=== PATIENT | male | born 1995 | race Hispanic/Latino ===

== ENCOUNTER 2018-04-22 10:16 | Emergency (ER) | payer OTHER, SELFPAY ==
[2018-04-22] MEDS ORDERED: ONDANSETRON 4 MG/2 ML VIAL ONE (11:33)
[2018-04-22] MEDS ORDERED: LIDOCAINE VISCOUS 2% SOLN 15 ML UDC ONE (11:33)
[2018-04-22] MEDS ORDERED: MAGNE/ALUM HYDROXD 30 ML UCUP ONE (11:33)
[2018-04-22] MEDS ORDERED: FAMOTIDINE 20 MG/2 ML VIAL IV ONE (11:34)
[2018-04-22 15:01] LABS: Albumin 5.2 g/dL (3.4-5.0); Bilirubin Direct 0.2 mg/dL (0-0.2); Bilirubin Total 0.7 mg/dL (0.2-1.0); Potassium 3.2 mmol/L (3.5-5.1); Protein, Total 8.8 g/dL (6.4-8.2)
[2018-04-22] MEDS ORDERED: POTASSIUM CL SA 10 MEQ TAB PO ONE (15:02)
--- NOTE | 2018-04-22 15:09 | ER ---
Nurse's Notes [facility] Name: Barbi Garay Age: 22 yrs Sex: Male : 1995 Arrival Date: 04/22/2018 Time: 10:17 Bed 20 Private MD: None, None Diagnosis: Gastritis, unspecified Presentation: 04/22 11:13 Presenting complaint: Patient states: Vomiting since Friday. Reports blood streaking in aj emesis. Patient is A+O x 3, ambulatory with skin pink, warm, and dry. Reports pain in epigastrium. Transition of care: patient was not received from another setting of care. Onset of symptoms was April 20, 2018. Risk Assessment: Do you want to hurt yourself or someone else? Patient reports no desire to harm self or others. Initial Sepsis Screen: Does the patient meet any 2 criteria? No. Patient's initial sepsis screen is negative. Does the patient have a suspected source of infection? No. Patient's initial sepsis screen is negative. Care prior to arrival: None. 11:13 Method Of Arrival: Ambulatory 11:13 Acuity: RONNY 3 aj Triage Assessment: 11:15 General: Appears in no apparent distress. comfortable, Behavior is calm, cooperative, aj appropriate for age. Pain: Complains of pain in epigastric area. Neuro: Level of Consciousness is awake, alert, obeys commands, Oriented to person, place, time, situation, Appropriate for age. Respiratory: Airway is patent Respiratory effort is even, unlabored, Respiratory pattern is regular, symmetrical. GI: Abdomen is flat, Reports upper abdominal pain, epigastric pain, nausea, vomiting. Derm: Skin is intact, is healthy with good turgor, Skin is pink, warm \T\ dry. normal. Historical: - Allergies: 11:15 No Known Allergies; aj - Home Meds: 11:15 None [Active]; aj - PMHx: 11:15 None; aj - PSHx: 11:15 None; aj - Immunization history:: Adult Immunizations unknown. - Social history:: Smoking status: Patient uses tobacco products, smokes one-half pack cigarettes per day, Patient uses alcohol, weekly. - Ebola Screening: : Patient negative for fever greater than or equal to 101.5 degrees Fahrenheit, and additional compatible Ebola Virus Disease symptoms Patient denies exposure to infectious person Patient denies travel to an Ebola-affected area in the 21 days before illness onset No symptoms or risks identified at this time. Screenin:13 Abuse screen: Denies threats or abuse. Denies injuries from another. Nutritional hj screening: No deficits noted. Tuberculosis screening: No symptoms or risk factors identified. Fall Risk None identified. Assessment: 11:15 General: Appears in no apparent distress. uncomfortable, Behavior is calm, cooperative, hj appropriate for age. Pain: Complains of pain in epigastric area. Neuro: Level of Consciousness is awake, alert, obeys commands, Oriented to person, place, time, situation, Appropriate for age. Cardiovascular: Reports None Heart tones S1 S2 present Capillary refill < 3 seconds Patient's skin is warm and dry. Respiratory: Airway is patent Respiratory effort is even, unlabored, Respiratory pattern is regular, symmetrical. GI: Reports upper abdominal pain. GI: Bowel sounds present X 4 quads. Abd is soft and non tender Abd is soft. : No signs and/or symptoms were reported regarding the genitourinary system. EENT: No signs and/or symptoms were reported regarding the EENT system. Derm: No signs and/or symptoms reported regarding the dermatologic system. Musculoskeletal: No signs and/or symptoms reported regarding the musculoskeletal system. 12:46 Reassessment: Patient and/or family updated on plan of care and expected duration. Pain hj level reassessed. Patient is alert, oriented x 3, equal unlabored respirations, skin warm/dry/pink. 13:43 Reassessment: Patient and/or family updated on plan of care and expected duration. Pain hj level reassessed. Patient is alert, oriented x 3, equal unlabored respirations, skin warm/dry/pink. awaiting results and POC;. 14:31 Reassessment: Patient and/or family updated on plan of care and expected duration. Pain hj level reassessed. Patient is alert, oriented x 3, equal unlabored respirations, skin warm/dry/pink. awaiting POC; Patient states feeling better. Patient states symptoms have improved. 15:04 Reassessment: for possible D/C; awaiting chest xray result;. hj Vital Signs: 11:15 BP 132 / 78; Pulse 81; Resp 16; Temp 97.6; Pulse Ox 99% on R/A; Weight 63.5 kg; Height aj 5 ft. 5 in. (165.10 cm); 12:18 BP 110 / 69; Pulse 70; Resp 18; Pulse Ox 97% on R/A; hj 12:47 BP 115 / 60; Pulse 84; Resp 18; Pulse Ox 100% on R/A; hj 13:43 BP 112 / 59; Pulse 61; Resp 18; Pulse Ox 100% on R/A; hj 14:31 BP 116 / 79; Pulse 65; Resp 18; Pulse Ox 100% on R/A; hj 11:15 Body Mass Index 23.30 (63.50 kg, 165.10 cm) aj ED Course: 10:17 Patient arrived in ED. iw 10:17 None, None is Private Physician. iw 11:13 Aurelio Carson PA is PHCP. jr8 11:13 Vijay Mondragon MD is Attending Physician. jr8 11:13 Patient has correct armband on for positive identification. Placed in gown. Bed in low hj position. Call light in reach. Side rails up X 1. 11:15 Triage completed. aj 11:15 Arm band placed on left wrist. Patient placed in an exam room, on a stretcher. aj 11:17 Rodrigo Amaro, RN is Primary Nurse. hj 11:30 Initial lab(s) drawn, by me, sent to lab. Inserted saline lock: 22 gauge in right hj antecubital area, using aseptic technique. Blood collected. 15:10 X-ray completed. Portable x-ray completed in exam room. Patient tolerated procedure ml well. 15:17 No provider procedures requiring assistance completed. IV discontinued, intact, hj bleeding controlled, No redness/swelling at site. Pressure dressing applied. Administered Medications: 11:17 Drug: Pepcid 20 mg Route: IVP; Site: right antecubital; hj 12:08 Follow up: Response: No adverse reaction hj 11:17 Drug: Zofran 4 mg Route: IVP; Site: right antecubital; hj 12:08 Follow up: Response: No adverse reaction hj 11:17 Drug: GI Cocktail without - (Maalox Suspension 30 ml, Lidocaine Liquid 2 % 15 hj ml) Route: PO; 12:08 Follow up: Response: No adverse reaction hj 14:55 Drug: Potassium Chloride 20 mEq Route: PO; hj 14:58 Follow up: Response: No adverse reaction hj Outcome: 15:07 Discharge ordered by MD. douglass 15:17 Discharged to home ambulatory. vy 15:17 Condition: stable 15:17 Discharge instructions given to patient, Instructed on discharge instructions, follow up and referral plans. medication usage, Demonstrated understanding of instructions, follow-up care, medications, Prescriptions given X 2. 15:20 Patient left the ED. vy Signatures: Hien Marrufo RN RN aj Williams, Irene, RN RN iw Lopez, Melissa ml Roszak, Josh, PA PA jr8 Joaquin, Henry, RN RN hj
--- NOTE | 2018-04-22 15:10 | EDPHYS ---
Physician Documentation [facility] Name: Barbi Garay Age: 22 yrs Sex: Male : 1995 Arrival Date: 04/22/2018 Time: 10:17 Bed 20 Private MD: None, None ED Physician Vijay Mondragon HPI: 04/22 11:22 This 22 yrs old Male presents to ER via Ambulatory with complaints of Vomiting.jr8 11:22 The patient presents to the emergency department with nausea, vomiting, abdominal pain, jr8 of the epigastric area, described as dull. Onset: The symptoms/episode began/occurred acutely, 2 day(s) ago. Possible causes: unknown. The symptoms are aggravated by nothing. The symptoms are alleviated by nothing. Associated signs and symptoms: The patient has no apparent associated signs or symptoms. Severity of symptoms: At their worst the symptoms were moderate in the emergency department the symptoms are unchanged. The patient has not experienced similar symptoms in the past. The patient has not recently seen a physician. Historical: - Allergies: 11:15 No Known Allergies; aj - Home Meds: 11:15 None [Active]; aj - PMHx: 11:15 None; aj - PSHx: 11:15 None; aj - Immunization history:: Adult Immunizations unknown. - Social history:: Smoking status: Patient uses tobacco products, smokes one-half pack cigarettes per day, Patient uses alcohol, weekly. - Ebola Screening: : Patient negative for fever greater than or equal to 101.5 degrees Fahrenheit, and additional compatible Ebola Virus Disease symptoms Patient denies exposure to infectious person Patient denies travel to an Ebola-affected area in the 21 days before illness onset No symptoms or risks identified at this time. ROS: 11:22 Eyes: Negative for injury, pain, redness, and discharge, ENT: Negative for injury, jr8 pain, and discharge, Neck: Negative for injury, pain, and swelling, Cardiovascular: Negative for chest pain, palpitations, and edema, Respiratory: Negative for shortness of breath, cough, wheezing, and pleuritic chest pain, Back: Negative for injury and pain, MS/Extremity: Negative for injury and deformity, Skin: Negative for injury, rash, and discoloration, Neuro: Negative for headache, weakness, numbness, tingling, and seizure. 11:22 Abdomen/GI: Positive for abdominal pain, nausea and vomiting, hematemesis, Negative for diarrhea, constipation, abdominal cramps, abdominal distension, anorexia, dysphagia, black/tarry stool, rectal pain, rectal bleeding, bowel incontinence, flatulence. Exam: 11:22 Eyes: Pupils equal round and reactive to light, extra-ocular motions intact. Lids and jr8 lashes normal. Conjunctiva and sclera are non-icteric and not injected. Cornea within normal limits. Periorbital areas with no swelling, redness, or edema. ENT: Nares patent. No nasal discharge, no septal abnormalities noted. Tympanic membranes are normal and external auditory canals are clear. Oropharynx with no redness, swelling, or masses, exudates, or evidence of obstruction, uvula midline. Mucous membranes moist. Neck: Trachea midline, no thyromegaly or masses palpated, and no cervical lymphadenopathy. Supple, full range of motion without nuchal rigidity, or vertebral point tenderness. No Meningismus. Cardiovascular: Regular rate and rhythm with a normal S1 and S2. No gallops, murmurs, or rubs. Normal PMI, no JVD. No pulse deficits. Respiratory: Lungs have equal breath sounds bilaterally, clear to auscultation and percussion. No rales, rhonchi or wheezes noted. No increased work of breathing, no retractions or nasal flaring. Back: No spinal tenderness. No costovertebral tenderness. Full range of motion. Skin: Warm, dry with normal turgor. Normal color with no rashes, no lesions, and no evidence of cellulitis. MS/ Extremity: Pulses equal, no cyanosis. Neurovascular intact. Full, normal range of motion. Neuro: Awake and alert, GCS 15, oriented to person, place, time, and situation. Cranial nerves II-XII grossly intact. Motor strength 5/5 in all extremities. Sensory grossly intact. Cerebellar exam normal. Normal gait. 11:22 Abdomen/GI: Inspection: abdomen appears normal, Bowel sounds: active, all quadrants, Palpation: soft, in all quadrants, mild abdominal tenderness, in the epigastric area, mass, is not appreciated, rebound tenderness, is not appreciated, voluntary guarding, is elicited in all quadrants, involuntary guarding, is elicited in all quadrants, no appreciated organomegaly, Indicators: McBurney's point is not tender, Packer's sign is negative, Rovsing's sign is negative, Liver: no appreciated palpable abnormalities, tenderness, is not appreciated. Vital Signs: 11:15 BP 132 / 78; Pulse 81; Resp 16; Temp 97.6; Pulse Ox 99% on R/A; Weight 63.5 kg; Height aj 5 ft. 5 in. (165.10 cm); 12:18 BP 110 / 69; Pulse 70; Resp 18; Pulse Ox 97% on R/A; hj 12:47 BP 115 / 60; Pulse 84; Resp 18; Pulse Ox 100% on R/A; hj 13:43 BP 112 / 59; Pulse 61; Resp 18; Pulse Ox 100% on R/A; hj 14:31 BP 116 / 79; Pulse 65; Resp 18; Pulse Ox 100% on R/A; hj 11:15 Body Mass Index 23.30 (63.50 kg, 165.10 cm) aj MDM: 11:17 Patient medically screened. [facility] 15:06 Data reviewed: vital signs, nurses notes, lab test result(s), radiologic studies, plain jr8 films. Data interpreted: Pulse oximetry: on room air is 100 %. Interpretation: normal. 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 Response to treatment: the patient's symptoms have markedly improved after treatment. 04/22 11:17 Order name: Basic Metabolic Panel [facility] 04/22 11:17 Order name: CBC with Diff [facility] 04/22 11:17 Order name: Creatinine for Radiology [facility] 04/22 11:17 Order name: Hepatic Function [facility] 04/22 11:17 Order name: Lipase [facility] 04/22 15:02 Order name: Basic Metabolic Panel; Complete Time: 15:06 EDVT 04/22 11:17 Order name: XRAY Chest (1 view) [facility] 04/22 15:03 Order name: Liver (Hepatic) Function; Complete Time: 15:06 EDVT 04/22 15:03 Order name: Lipase; Complete Time: 15:06 EDVT 04/22 15:06 Order name: XRAY Chest (1 view) 8 04/22 11:17 Order name: IV Saline Lock; Complete Time: 11:24 8 04/22 11:17 Order name: Labs collected and sent; Complete Time: 11:25 8 Administered Medications: 11:17 Drug: Pepcid 20 mg Route: IVP; Site: right antecubital; hj 12:08 Follow up: Response: No adverse reaction hj 11:17 Drug: Zofran 4 mg Route: IVP; Site: right antecubital; hj 12:08 Follow up: Response: No adverse reaction hj 11:17 Drug: GI Cocktail without - (Maalox Suspension 30 ml, Lidocaine Liquid 2 % 15 hj ml) Route: PO; 12:08 Follow up: Response: No adverse reaction hj 14:55 Drug: Potassium Chloride 20 mEq Route: PO; hj 14:58 Follow up: Response: No adverse reaction hj Disposition: 16:32 Co-signature as Attending Physician, Vijay Mondragon MD. rn Disposition: 04/22/18 15:07 Discharged to Home. Impression: Gastritis, unspecified. - Condition is Stable. - Discharge Instructions: Gastritis, Adult. - Prescriptions for omeprazole 40 mg Oral capsule,delayed release(DR/EC) - take 1 capsule by ORAL route once daily before a meal; 20 capsule. Zofran 4 mg Oral Tablet - take 1 tablet by ORAL route every 12 hours As needed; 20 tablet. - Medication Reconciliation Form, Thank You Letter, Antibiotic Education, Prescription Opioid Use form. - Work release form (04/22/18 15:27). aj - Follow up: Private Physician; When: 2 - 3 days; Reason: Recheck today's complaints, Continuance of care, Re-evaluation by your physician. - Problem is new. - Symptoms have improved. Signatures: Dispatcher [employer] Hien Jiang RN RN aj Williams, Irene, RN RN iw Nieto, Roman, MD MD rn Roszak, Josh, PA PA 8 Rodrigo Amaro RN RN hj Corrections: (The following items were deleted from the chart) 15:20 15:07 04/22/2018 15:07 Discharged to Home. Impression: Gastritis, unspecified. hj Condition is Stable. Forms are Medication Reconciliation Form, Thank You Letter, Antibiotic Education, Prescription Opioid Use. Follow up: Private Physician; When: 2 - 3 days; Reason: Recheck today's complaints, Continuance of care, Re-evaluation by your physician. Problem is new. Symptoms have improved. jr8
[2018-04-22 15:21] LABS: Absolute Monocytes 0.9 K/uL (0.1-1.3); Absolute Neutrophil 6.2 K/uL (1.8-8.0); Basophils % 1.2 % (0-1.3); Eosinophils % 0.3 % (0-4.4); Hematocrit 46.2 % (39.6-49.0); Lymphocytes % 21.6 % (15.3-44.8); MCH 31.2 pg (27.0-35.0); MCV 90.2 fL (80-100); MPV 8.9 fL (7.6-11.3); Monocytes % 9.8 % (3.3-12.3); RBC Red Blood Cell Count 5.12 M/uL (4.33-5.43)
[2018-04-22 15:29] VITALS: TEMP 97.6
--- NOTE | 2018-04-22 15:35 | RAD REPORT ---
EXAM DESCRIPTION: RAD - Chest Single View - 04/22/2018 3:25 pm CLINICAL HISTORY: chest pain Chest pain. COMPARISON: No comparisons FINDINGS: Portable technique limits examination quality. The lungs are grossly clear. The heart is normal in size. No displaced fractures. IMPRESSION: No acute intrathoracic process suspected.
[2018-04-22 15:37] VITALS: O2SAT 100
[2018-04-22 15:40] VITALS: BP 116/79
--- NOTE | 2018-04-24 07:00 | EKG ---
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
== END 2018-04-22 15:20 | disposition home or self-care (01) ==
LOC: ER 10:16
DX: K29.70 Gastritis, unspecified, without bleeding (principal)
CPT/HCPCS: 36415; 71045; 80048; 80076; 83690; 85025; 93005; 96374; 96375; 99284; J2405

== ENCOUNTER 2020-05-07 15:25 | Emergency (ER) | payer SELFPAY ==
--- NOTE | 2020-05-07 16:22 | RAD REPORT ---
EXAM DESCRIPTION: CT - Head Brain Wo Cont - 05/07/2020 4:17 pm CLINICAL HISTORY: HEADACHE Headache, drowsiness COMPARISON: No comparisons TECHNIQUE: All CT scans are performed using dose optimization technique as appropriate and may inclu de automated exposure control or mA/KV adjustment according to patient size. FINDINGS: No intracranial hemorrhage, hydrocephalus or extra-axial fluid collection.No areas of brai n edema or evidence of midline shift. The paranasal sinuses and mastoids are clear. The calvarium is intact. IMPRESSION: No acute intracranial abnormality.
--- NOTE | 2020-05-07 16:33 | EDPHYS ---
Physician Documentation [facility] Name: Chalino Garay Age: 24 yrs Sex: Male : 1995 Arrival Date: 05/07/2020 Time: 15:26 Bed 8 Private MD: ED Physician Elliott Cleary HPI: 05/07 16:16 This 24 yrs old Male presents to ER via Ambulatory with complaints of Headache.jmm 16:16 The patient complains of pain to the right frontal area, right side of the back of m head, right temporal area, right occipital area and right base of the skull. Onset: The symptoms/episode began/occurred acutely, 2 hour(s) ago. Associated signs and symptoms: Pertinent negatives: vomiting. Patient also admits to 3 days of dental pain. Denies fever. . Historical: - Allergies: 15:38 No Known Allergies; jd3 - Home Meds: 15:38 None [Active]; jd3 - PMHx: 15:38 None; jd3 - PSHx: 15:38 None; jd3 - Immunization history:: Adult Immunizations up to date. - Social history:: Smoking status: Patient reports the use of cigarette tobacco products, denies chronic smoking, but will smoke occasionally. ROS: 16:16 Constitutional: Negative for fever, chills, and weight loss. jmm 16:16 Cardiovascular: Negative for chest pain, palpitations, and edema, Respiratory: Negative for shortness of breath, cough, wheezing, and pleuritic chest pain. 16:16 ENT: Positive for dental pain. 16:16 Neuro: Positive for headache. 16:16 All other systems are negative. Exam: 16:16 Constitutional: This is a well developed, well nourished patient who is awake, alert, jmm and in no acute distress. Head/Face: atraumatic. Eyes: EOMI, no conjunctival erythema appreciated 16:16 ENT: Moist Mucus Membranes Neck: Trachea midline, Supple Chest/axilla: Normal chest wall appearance and motion. Cardiovascular: Regular rate and rhythm. No edema appreciated Respiratory: Normal respirations, no respiratory distress appreciated Abdomen/GI: Non distended, soft Back: Normal ROM Skin: General appearance color normal MS/ Extremity: Moves all extremities, no obvious deformities appreciated, no edema noted to the lower extremities Neuro: Awake and alert, normal gait Psych: Behavior is normal, Mood is normal, Patient is cooperative and pleasant 16:30 ENT: Dental exam: dental caries, that is moderate, specifically in the upper right jmm third molar (#1) and upper right second molar (#2), gum swelling, that is moderate, specifically in the upper right second molar (#2) and upper right first molar (#3). Vital Signs: 15:38 BP 136 / 72; Pulse 67; Resp 17 S; Temp 98.6(TE); Pulse Ox 100% on R/A; Weight 69.85 kg jd3 (R); Height 5 ft. 5 in. (165.10 cm) (R); Pain 9/10; 16:30 BP 134 / 73; Pulse 71; Resp 16; Pulse Ox 99% ; rb1 15:38 Body Mass Index 25.63 (69.85 kg, 165.10 cm) jd3 MDM: 16:04 Patient medically screened. [facility] 16:30 Data reviewed: vital signs, nurses notes. Counseling: I had a detailed discussion with [facility] the patient and/or guardian regarding: the historical points, exam findings, and any diagnostic results supporting the discharge/admit diagnosis, radiology results, the need for outpatient follow up, to return to the emergency department if symptoms worsen or persist or if there are any questions or concerns that arise at home. ED course: Patient is alert and non toxic in appearance in the ED. Patient is advised to follow up with dentist or PCP for reevaluation. patient is otherwise given strict return precautions. patient understood and agree with the plan of care. . 05/07 16:08 Order name: CT Head Brain wo Cont; Complete Time: 16:27 [facility] Administered Medications: No medications were administered Disposition: 05/08 07:15 Co-signature as Attending Physician, Elliott Cleary MD I agree with the assessment and rosi plan of care. Disposition: 05/07/20 16:33 Discharged to Home. Impression: Dental caries, Headache. - Condition is Stable. - Discharge Instructions: Dental Pain, General Headache Without Cause. - Prescriptions for Amoxicillin 875 mg Oral Tablet - take 1 tablet by ORAL route every 12 hours for 10 days; 20 tablet. Ultracet 37.5- 325 mg Oral Tablet - take 1 tablet by ORAL route every 6 hours - for up to 5 days; do not exceed 8 tablets per day.; 12 tablet. - Medication Reconciliation Form, Thank You Letter, Antibiotic Education, Prescription Opioid Use form. - Follow up: Private Physician; When: 2 - 3 days; Reason: Recheck today's complaints, Continuance of care, Re-evaluation by your physician. Signatures: Dispatcher [employer] EDElliott Reis MD MD cha Mickail, Joel, PA PA jmm Calderon, Audri RN RN aa5 Francesco Marquez RN RN jd3 Corrections: (The following items were deleted from the chart) 05/07 17:05 16:33 05/07/2020 16:33 Discharged to Home. Impression: Dental caries; Headache. aa5 Condition is Stable. Forms are Medication Reconciliation Form, Thank You Letter, Antibiotic Education, Prescription Opioid Use. Follow up: Private Physician; When: 2 - 3 days; Reason: Recheck today's complaints, Continuance of care, Re-evaluation by your physician. maryjo
--- NOTE | 2020-05-07 16:33 | ER ---
Nurse's Notes [facility] Name: Chalino Garay Age: 24 yrs Sex: Male : 1995 Arrival Date: 05/07/2020 Time: 15:26 Bed 8 Private MD: Diagnosis: Dental caries;Headache Presentation: 05/07 15:36 Chief complaint: Patient states: "I have this sharp pain in the back of my head.". jd3 Coronavirus screen: At this time, the client does not indicate any symptoms associated with coronavirus-19. Ebola Screen: Patient negative for fever greater than or equal to 101.5 degrees Fahrenheit, and additional compatible Ebola Virus Disease symptoms. Initial Sepsis Screen: Does the patient meet any 2 criteria? No. Patient's initial sepsis screen is negative. Does the patient have a suspected source of infection? No. Patient's initial sepsis screen is negative. Risk Assessment: Do you want to hurt yourself or someone else? Patient reports no desire to harm self or others. Note Tylenol taken about 1.5 hrs ago.". Onset of symptoms was May 07, 2020. 15:36 Method Of Arrival: Ambulatory jd3 15:36 Acuity: RONNY 4 jd3 Triage Assessment: 15:38 Headache History: Denies prior headaches. jd3 16:11 Pain: Also complains of. rb1 Historical: - Allergies: 15:38 No Known Allergies; jd3 - Home Meds: 15:38 None [Active]; jd3 - PMHx: 15:38 None; jd3 - PSHx: 15:38 None; jd3 - Immunization history:: Adult Immunizations up to date. - Social history:: Smoking status: Patient reports the use of cigarette tobacco products, denies chronic smoking, but will smoke occasionally. Screenin:02 Abuse screen: Denies threats or abuse. Nutritional screening: No deficits noted. rb1 Tuberculosis screening: No symptoms or risk factors identified. Fall Risk None identified. Assessment: 16:02 General: Appears uncomfortable, Behavior is calm, cooperative, Denies fever. Pain: rb1 Complains of pain in right upper jaw Pain currently is 10 out of 10 on a pain scale. Pain began 4 days ago. Neuro: Level of Consciousness is awake, alert, obeys commands, Oriented to person, place, time, situation. Neuro: Reports headache Denies blurred vision dizziness. Cardiovascular: Capillary refill < 3 seconds. Respiratory: Airway is patent Respiratory effort is even, unlabored, Respiratory pattern is regular, symmetrical. GI: No signs and/or symptoms were reported involving the gastrointestinal system. : No signs and/or symptoms were reported regarding the genitourinary system. Derm: Skin is pink, warm \\T\\ dry. 17:00 Reassessment: Patient appears in no apparent distress at this time. No changes from rb1 previously documented assessment. Vital Signs: 15:38 BP 136 / 72; Pulse 67; Resp 17 S; Temp 98.6(TE); Pulse Ox 100% on R/A; Weight 69.85 kg jd3 (R); Height 5 ft. 5 in. (165.10 cm) (R); Pain 9/10; 16:30 BP 134 / 73; Pulse 71; Resp 16; Pulse Ox 99% ; rb1 15:38 Body Mass Index 25.63 (69.85 kg, 165.10 cm) jd3 ED Course: 15:26 Patient arrived in ED. as 15:37 Triage completed. jd3 15:39 Arm band placed on. jd3 15:57 Maria Dolores Tran, RN is Primary Nurse. rb1 15:58 Keith Norton PA is PHCP. [facility] 15:58 Elliott Cleary MD is Attending Physician. [facility] 16:02 Patient has correct armband on for positive identification. Bed in low position. Call rb1 light in reach. Side rails up X 1. Pulse ox on. NIBP on. 16:16 CT Head Brain wo Cont In Process Unspecified. EDMS 17:05 No provider procedures requiring assistance completed. Patient did not have IV access rb1 during this emergency room visit. Administered Medications: No medications were administered Outcome: 16:33 Discharge ordered by . [facility] 17:05 Patient left the ED. aa5 17:05 Discharged to home ambulatory. rb1 17:05 Condition: stable 17:05 Discharge instructions given to patient, Instructed on discharge instructions, follow up and referral plans. medication usage, Demonstrated understanding of instructions, follow-up care, medications, Prescriptions given X 2. Signatures: Dispatcher [employer] EDDC Keith Norton PA PA jmm Martinez, Amelia as Calderon, Audri, RN RN aa5 Maria Dolores Tran, RN RN rb1 Francesco Marquez RN RN jd3 Corrections: (The following items were deleted from the chart) 15:39 15:38 Pulse 67bpm; Resp 17bpm; Spontaneous; Pulse Ox 100%; Temp 98.6F; 69.85 kg; Height jd3 5 ft. 5 in.; BMI: 25.6; Pain 9/10; jd3
[2020-05-07 17:24] VITALS: BP 136/72; TEMP 98.6; O2SAT 100
== END 2020-05-07 17:05 | disposition home or self-care (01) ==
LOC: ER 15:25
DX: K02.9 Dental caries, unspecified (principal); F17.210 Nicotine dependence, cigarettes, uncomplicated
CPT/HCPCS: 70450; 99283

== ENCOUNTER 2020-06-05 19:28 | Emergency (ER) | payer SELFPAY ==
[2020-06-05] MEDS ORDERED: ACETAMINOPHEN 500 MG TAB ONE (20:37)
[2020-06-05] MEDS ORDERED: CYCLOBENZAPRINE 10 MG TAB ONE (20:37)
[2020-06-05] MEDS ORDERED: KETOROLAC 30 MG/ML INJ ONE (20:37)
--- NOTE | 2020-06-05 21:21 | ER ---
Nurse's Notes [facility] Name: Chalino Garay Age: 24 yrs Sex: Male : 1995 Arrival Date: 06/05/2020 Time: 19:29 Bed 18 Private MD: Diagnosis: Headache Presentation: 06/05 19:38 Chief complaint: Patient states: "I've just been having a bad headache, it just started aj1 today at like 10 in the morning. I tried taking some Tylenol and it didn't go away" Denies fever. Denies recent head injury. States "I slept on my neck wrong, that's about it". Coronavirus screen: Client denies travel out of the [place] in the last 14 days. At this time, the client does not indicate any symptoms associated with coronavirus-19. Ebola Screen: Patient denies travel to an Ebola-affected area in the 21 days before illness onset. Initial Sepsis Screen: Does the patient meet any 2 criteria? No. Patient's initial sepsis screen is negative. Does the patient have a suspected source of infection? No. Patient's initial sepsis screen is negative. Risk Assessment: Do you want to hurt yourself or someone else? Patient reports no desire to harm self or others. Onset of symptoms was June 05, 2020 at 10:00. 19:38 Method Of Arrival: Ambulatory aj1 19:38 Acuity: RONNY 4 aj1 Triage Assessment: 19:41 Headache History: Denies prior headaches. General: Appears in no apparent distress. aj1 comfortable, Behavior is calm, cooperative, appropriate for age. Pain: Complains of pain in occipital area Pain radiates to neck Pain currently is 8 out of 10 on a pain scale. Pain began 10 hours ago. Neuro: Level of Consciousness is awake, alert, obeys commands, Oriented to person, place, time, situation, Gait is steady, Speech is normal, Facial symmetry appears normal. Cardiovascular: Patient's skin is warm and dry. Respiratory: Airway is patent Respiratory effort is even, unlabored, Respiratory pattern is regular, symmetrical. 21:28 Pain: Also complains of no other associated symptoms. ll1 Historical: - Allergies: 19:41 No Known Allergies; aj1 - Home Meds: 19:41 None [Active]; aj1 - PMHx: 19:41 None; aj1 - PSHx: 19:41 None; aj1 - Immunization history:: Flu vaccine is not up to date. - Social history:: Smoking status: Patient reports the use of cigarette tobacco products, denies chronic smoking, but will smoke occasionally. Screenin:16 Abuse screen: Denies threats or abuse. Nutritional screening: No deficits noted. ll1 Tuberculosis screening: No symptoms or risk factors identified. Fall Risk Total Christian Fall Scale indicates No Risk (0-24 pts). Assessment: 20:25 General: Appears uncomfortable, Behavior is calm, cooperative, appropriate for age. ll1 Pain: Complains of pain in occipital area Pain currently is 8 out of 10 on a pain scale. Quality of pain is described as aching. Neuro: Level of Consciousness is awake, alert, obeys commands, Oriented to person, place, time, situation, Appropriate for age Griddle Attendant are equal bilaterally Moves all extremities. Full function Gait is steady, Speech is normal, Facial symmetry appears normal, Pupils are PERRLA, Reports headache occipital area. Cardiovascular: No deficits noted. Respiratory: No deficits noted. GI: No deficits noted. 21:20 Reassessment: Patient and/or family updated on plan of care and expected duration. Pain ll1 level reassessed. Patient is alert, oriented x 3, equal unlabored respirations, skin warm/dry/pink. Patient states feeling better. Vital Signs: 19:38 BP 135 / 66; Pulse 73; Resp 18; Temp 98.4; Pulse Ox 99% on R/A; Weight 72.57 kg (R); aj1 Height 5 ft. 5 in. (165.10 cm) (R); Pain 8/10; 21:27 BP 119 / 76; Pulse 64; Resp 17; Pulse Ox 99% ; Pain 3/10; ll1 19:38 Body Mass Index 26.63 (72.57 kg, 165.10 cm) aj1 [place] Coma Score: 06/06 04:01 Eye Response: spontaneous(4). Verbal Response: oriented(5). Motor Response: obeys tw4 commands(6). Total: 15. ED Course: 06/05 19:29 Patient arrived in ED. cl3 19:41 Triage completed. aj1 19:41 Arm band placed on Patient placed in waiting room, Patient notified of wait time. aj1 20:00 Luciano Villegas, DIA is Primary Nurse. ll1 20:04 Vick Vasques MD is Attending Physician. tw4 21:16 Patient has correct armband on for positive identification. Bed in low position. Call ll1 light in reach. Side rails up X 1. Cardiac monitoring not applicable on this patient. 21:28 No provider procedures requiring assistance completed. Patient did not have IV access ll1 during this emergency room visit. Administered Medications: 20:29 Drug: TORadol 60 mg Route: IM; Site: right gluteus; ll1 21:27 Follow up: Response: No adverse reaction; Pain is decreased; RASS: Alert and Calm (0) ll1 20:29 Drug: Tylenol 1000 mg Route: PO; ll1 21:26 Follow up: Response: No adverse reaction; Pain is decreased; RASS: Alert and Calm (0) ll1 20:29 Drug: Flexeril 10 mg Route: PO; ll1 21:26 Follow up: Response: No adverse reaction; Pain is decreased; RASS: Alert and Calm (0) ll1 Outcome: 21:20 Discharge ordered by . tw4 21:28 Discharged to home ambulatory. ll1 21:28 Condition: stable 21:28 Discharge instructions given to patient, Instructed on discharge instructions, follow up and referral plans. medication usage, Demonstrated understanding of instructions, follow-up care, medications, Prescriptions given X 2. 21:29 Patient left the ED. ll1 Signatures: Ignacia Parks RN RN ajVick Whitaker MD MD tw4 Shelbi Villegas 3 Luciano Villegas, RN RN ll1 Corrections: (The following items were deleted from the chart) 21:28 21:15 General: Appears uncomfortable, Behavior is calm, cooperative, appropriate for ll1 age, ll1 21:28 21:15 Pain: Complains of pain in occipital area Pain currently is 8 out of 10 on a pain ll1 scale. Quality of pain is described as aching, ll1 21:28 21:15 Neuro: Level of Consciousness is awake, alert, obeys commands, Oriented to ll1 person, place, time, situation, Appropriate for age Griddle Attendant are equal bilaterally Moves all extremities. Full function Gait is steady, Speech is normal, Facial symmetry appears normal, Pupils are PERRLA, Reports headache occipital area, ll1 21:28 21:15 Cardiovascular: No deficits noted. ll1 ll1 21:15 Respiratory: No deficits noted. ll1 ll1 21:15 GI: No deficits noted. ll1 ll1
--- NOTE | 2020-06-05 21:22 | EDPHYS ---
Physician Documentation [facility] Name: Chalino Garay Age: 24 yrs Sex: Male : 1995 Arrival Date: 06/05/2020 Time: 19:29 Bed 18 Private MD: ED Physician Vick Vasques HPI: 06/06 04:01 This 24 yrs old Male presents to ER via Ambulatory with complaints of Headache.tw4 04:01 The patient complains of pain to the left base of the skull and right base of the tw4 skull. The patient describes the headache as pounding. Onset: The symptoms/episode began/occurred today. Associated signs and symptoms: The patient has no apparent associated signs or symptoms. Severity of symptoms: At its worst the pain was moderate, in the emergency department the pain is unchanged. The patient has not experienced similar symptoms in the past. Historical: - Allergies: 06/05 19:41 No Known Allergies; aj1 - Home Meds: 19:41 None [Active]; aj1 - PMHx: 19:41 None; aj1 - PSHx: 19:41 None; aj1 - Immunization history:: Flu vaccine is not up to date. - Social history:: Smoking status: Patient reports the use of cigarette tobacco products, denies chronic smoking, but will smoke occasionally. ROS: 06/06 04:01 Constitutional: Negative for fever, chills, and weight loss, Eyes: Negative for injury, tw4 pain, redness, and discharge, Cardiovascular: Negative for chest pain, palpitations, and edema, Respiratory: Negative for shortness of breath, cough, wheezing, and pleuritic chest pain, Abdomen/GI: Negative for abdominal pain, nausea, vomiting, diarrhea, and constipation, Back: Negative for injury and pain, MS/Extremity: Negative for injury and deformity, Skin: Negative for injury, rash, and discoloration. Neuro: Positive for headache, Negative for altered mental status, dizziness, gait disturbance, hearing loss, numbness, seizure activity, speech changes, syncope, tinnitus, tremor, weakness. Exam: 04:01 Constitutional: This is a well developed, well nourished patient who is awake, alert, tw4 and in no acute distress. Head/Face: Normocephalic, atraumatic. Cardiovascular: Regular rate and rhythm with a normal S1 and S2. No gallops, murmurs, or rubs. Normal PMI, no JVD. No pulse deficits. Respiratory: Lungs have equal breath sounds bilaterally, clear to auscultation and percussion. No rales, rhonchi or wheezes noted. No increased work of breathing, no retractions or nasal flaring. Abdomen/GI: Soft, non-tender, with normal bowel sounds. No distension or tympany. No guarding or rebound. No evidence of tenderness throughout. Back: No spinal tenderness. No costovertebral tenderness. Full range of motion. Skin: Warm, dry with normal turgor. Normal color with no rashes, no lesions, and no evidence of cellulitis. MS/ Extremity: Pulses equal, no cyanosis. Neurovascular intact. Full, normal range of motion. Neuro: Awake and alert, GCS 15, oriented to person, place, time, and situation. Cranial nerves II-XII grossly intact. Motor strength 5/5 in all extremities. Sensory grossly intact. Cerebellar exam normal. Normal gait. Vital Signs: 06/05 19:38 BP 135 / 66; Pulse 73; Resp 18; Temp 98.4; Pulse Ox 99% on R/A; Weight 72.57 kg (R); aj1 Height 5 ft. 5 in. (165.10 cm) (R); Pain 8/10; 21:27 BP 119 / 76; Pulse 64; Resp 17; Pulse Ox 99% ; Pain 3/10; ll1 19:38 Body Mass Index 26.63 (72.57 kg, 165.10 cm) aj1 [place] Coma Score: 06/06 04:01 Eye Response: spontaneous(4). Verbal Response: oriented(5). Motor Response: obeys tw4 commands(6). Total: 15. MDM: 06/05 20:04 Patient medically screened. tw4 06/06 04:01 Differential diagnosis: meningitis, migraine, subdural hematoma, temporal arteritis, tw4 tension headache. Data reviewed: vital signs, nurses notes. Counseling: I had a detailed discussion with the patient and/or guardian regarding: the historical points, exam findings, and any diagnostic results supporting the discharge/admit diagnosis. Special discussion: I discussed with the patient/guardian in detail that at this point there is no indication for admission to the hospital. It is understood, however, that if the symptoms persist or worsen the patient needs to return immediately for re-evaluation. Administered Medications: 06/05 20:29 Drug: TORadol 60 mg Route: IM; Site: right gluteus; ll1 21:27 Follow up: Response: No adverse reaction; Pain is decreased; RASS: Alert and Calm (0) ll1 20:29 Drug: Tylenol 1000 mg Route: PO; ll1 21:26 Follow up: Response: No adverse reaction; Pain is decreased; RASS: Alert and Calm (0) ll1 20:29 Drug: Flexeril 10 mg Route: PO; ll1 21:26 Follow up: Response: No adverse reaction; Pain is decreased; RASS: Alert and Calm (0) ll1 Disposition: 06/05/20 21:20 Discharged to Home. Impression: Headache. - Condition is Stable. - Discharge Instructions: General Headache Without Cause, Pain Without a Known Cause. - Prescriptions for Fiorinal 50- 325-40 mg Oral Capsule - take 1 capsule by ORAL route every 4 hours As needed - not to exceed 6 capsules per day; 20 capsule. Ibuprofen 800 mg Oral Tablet - take 1 tablet by ORAL route every 8 hours As needed take with food; 30 tablet. - Work release form, Medication Reconciliation Form, Thank You Letter, Antibiotic Education, Prescription Opioid Use form. - Follow up: Private Physician; When: Upon discharge from the Emergency Department; Reason: Recheck today's complaints, Continuance of care, Re-evaluation by your physician. - Problem is new. - Symptoms have improved. Signatures: Dispatcher [employer] [facility] Ignacia Parks RN RN aj1 Vick Vasques MD MD tw4 Luciano Villegas RN RN ll1 Corrections: (The following items were deleted from the chart) 20:28 20:11 Chest Single View+RAD.RAD.BRZ ordered. [facility] 21:29 21:20 06/05/2020 21:20 Discharged to Home. Impression: Headache. Condition is Stable. ll1 Forms are Medication Reconciliation Form, Thank You Letter, Antibiotic Education, Prescription Opioid Use. Follow up: Private Physician; When: Upon discharge from the Emergency Department; Reason: Recheck today's complaints, Continuance of care, Re-evaluation by your physician. Problem is new. Symptoms have improved. tw4
[2020-06-05 21:47] VITALS: TEMP 98.4; O2SAT 99
[2020-06-05 21:48] VITALS: BP 119/76
== END 2020-06-05 21:29 | disposition home or self-care (01) ==
LOC: ER 19:28
DX: R51.9 Headache, unspecified (principal); F17.210 Nicotine dependence, cigarettes, uncomplicated
CPT/HCPCS: 96372; 99283

== ENCOUNTER → 2023-09-06 | Emergency (ER) | payer SELFPAY ==
[~2023-09-06] MED LIST: HYDROCODONE/APAP 5/325 MG TAB ONE
--- NOTE | 2023-09-06 17:49 | ER ---
Nurse's Notes [facility] Name: Chalino Garay Age: 28 yrs Sex: Male : 1995 Arrival Date: 09/06/2023 Time: 17:16 Bed 10 Private MD: Diagnosis: Cracked tooth;Acute gingivitis Presentation: 09/06 17:33 Chief complaint: Patient states: bit into an apple yesterday and his tooth cracked. Pt cm10 reports that he is having pain. Reports taking ibuprofen with no relief. Coronavirus screen: Vaccine status: Patient reports being unvaccinated. Client denies travel out of the [place] in the last 14 days. Ebola Screen: Patient denies travel to an Ebola-affected area in the 21 days before illness onset. No symptoms or risks identified at this time. Initial Sepsis Screen: Does the patient meet any 2 criteria? No. Patient's initial sepsis screen is negative. Does the patient have a suspected source of infection? No. Patient's initial sepsis screen is negative. Risk Assessment: Do you want to hurt yourself or someone else? Patient reports no desire to harm self or others. Onset of symptoms was September 05, 2023. 17:33 Method Of Arrival: Ambulatory cm10 17:33 Acuity: RONNY 4 cm10 Triage Assessment: 17:35 General: Appears in no apparent distress. comfortable, Behavior is calm, cooperative. cm10 Pain: Complains of pain in upper right lateral incisor. EENT: No deficits noted. Dental caries noted in upper right lateral incisor (#7) Reports pain in upper right lateral incisor. Neuro: No deficits noted. Level of Consciousness is awake, alert, obeys commands, Oriented to person, place, time, situation. Cardiovascular: No deficits noted. Denies chest pain, shortness of breath, Patient's skin is warm and dry. Respiratory: No deficits noted. Airway is patent Respiratory effort is even, unlabored, Respiratory pattern is regular, symmetrical. GI: No deficits noted. No signs and/or symptoms were reported involving the gastrointestinal system. : No deficits noted. No signs and/or symptoms were reported regarding the genitourinary system. Derm: No deficits noted. No signs and/or symptoms reported regarding the dermatologic system. Skin is intact, Skin is pink, warm \T\ dry. Musculoskeletal: No deficits noted. No signs and/or symptoms reported regarding the musculoskeletal system. Range of motion: intact in all extremities. Historical: - Allergies: 17:34 No Known Allergies; cm10 - Home Meds: 17:34 None [Active]; cm10 - PMHx: 17:34 None; cm10 - PSHx: 17:34 None; cm10 - Immunization history:: Adult Immunizations up to date. - Social history:: Smoking status: Patient reports the use of cigarette tobacco products, denies chronic smoking, but will smoke occasionally. Screenin:36 [facility] ED Fall Risk Assessment (Adult) History of falling in the last 3 months, cm10 including since admission No falls in past 3 months (0 pts) Confusion or Disorientation No (0 pts) Intoxicated or Sedated No (0 pts) Impaired Gait No (0 pts) Mobility Assist Device Used No (0 pt) Altered Elimination No (0 pt) Score/Fall Risk Level 0 - 2 = Low Risk Oriented to surroundings, Maintained a safe environment, Hourly rounding (assess needs \T\ fall precautionary measures) done. Abuse screen: Denies threats or abuse. Denies injuries from another. Nutritional screening: No deficits noted. Tuberculosis screening: No symptoms or risk factors identified. Vital Signs: 17:33 BP 126 / 78; Pulse 68; Resp 16 S; Temp 98.8; Pulse Ox 98% on R/A; Weight 74.84 kg; cm10 Height 5 ft. 6 in. ; Pain 9/10; 17:33 Body Mass Index 26.63 (74.84 kg, 167.64 cm) cm10 17:33 Pain Scale: Adult cm10 ED Course: 17:21 Patient arrived in ED. im 17:22 Nickie Fritz PA-C is PHCP. sb4 17:22 Ryan Garvey MD is Attending Physician. sb4 17:34 Triage completed. cm10 17:35 Arm band placed on Patient placed in an exam room, on a stretcher. cm10 17:36 Patient has correct armband on for positive identification. Bed in low position. Call cm10 light in reach. Provided Education on: ER process and procedures. . 18:00 No provider procedures requiring assistance completed. Patient did not have IV access cm10 during this emergency room visit. Administered Medications: 18:00 Drug: HYDROcodone-acetaminophen PO 5 mg-325 mg 1 tabs PO once Route: PO; cm10 18:00 Follow up: Response: No adverse reaction; Medication administered at discharge. cm10 Medication: 17:36 VIS not applicable for this client. cm10 Outcome: 17:48 Discharge ordered by . sb4 18:00 Discharged to home ambulatory, cm10 18:00 Condition: good 18:00 Discharge instructions given to patient, Instructed on discharge instructions, follow up and referral plans. medication usage, Demonstrated understanding of instructions, follow-up care, medications, Prescriptions given X 2, 18:01 Patient left the ED. cm10 Signatures: Nickie Fritz PA-C PACain [id number] Fallon Garay Clarissa, RN RN cm10
--- NOTE | 2023-09-06 17:49 | EDPHYS ---
Physician Documentation [facility] Name: Chalino Garay Age: 28 yrs Sex: Male : 1995 Arrival Date: 09/06/2023 Time: 17:16 Bed 10 Private MD: ED Physician Ryan Garvey HPI: 09/06 20:04 This 28 yrs old Male presents to ER via Ambulatory with complaints of sb4 Lip/mouth pain, Chipped tooth. 20:04 Patient states that he chipped one of his teeth yesterday while eating an apple. He has sb4 been taking Tylenol and Motrin without significant relief in pain. He states that additionally, he chipped one of his wisdom tooth a while back and it is slowly become more swollen and painful. He has not been able to get into see a dentist for insurance reasons. He denies any fever. He is a daily smoker. Historical: - Allergies: 17:34 No Known Allergies; cm10 - Home Meds: 17:34 None [Active]; cm10 - PMHx: 17:34 None; cm10 - PSHx: 17:34 None; cm10 - Immunization history:: Adult Immunizations up to date. - Social history:: Smoking status: Patient reports the use of cigarette tobacco products, denies chronic smoking, but will smoke occasionally. ROS: 20:04 Constitutional: Negative for fever, chills, and weight loss, sb4 20:04 ENT: Positive for dental pain, 20:04 All other systems are negative, Exam: 20:04 Constitutional: This is a well developed, well nourished patient who is awake, alert, sb4 and in no acute distress. Head/Face: Normocephalic, atraumatic. Eyes: Extra-ocular motions intact. Periorbital areas with no swelling, redness, or edema. 20:04 ENT: Dental exam: dental caries, that is severe, diffusely, fractured teeth are noted, specifically the upper right lateral incisor (#7), gum swelling, that is moderate, diffusely, Vital Signs: 17:33 BP 126 / 78; Pulse 68; Resp 16 S; Temp 98.8; Pulse Ox 98% on R/A; Weight 74.84 kg; cm10 Height 5 ft. 6 in. ; Pain 9/10; 17:33 Body Mass Index 26.63 (74.84 kg, 167.64 cm) cm10 17:33 Pain Scale: Adult cm10 MDM: 17:39 Patient medically screened. sb4 20:04 Differential diagnosis:. Data reviewed: vital signs, nurses notes, and as a result, I sb4 will discharge patient. Care significantly affected by the following Social Determinants of Health: Poor access to healthcare and/or lack of insurance. Counseling: I had a detailed discussion with the patient and/or guardian regarding the historical points, exam findings, and any diagnostic results supporting the discharge/admit diagnosis, the need for outpatient follow up, a dentist, to return to the emergency department if symptoms worsen or persist or if there are any questions or concerns that arise at home, smoking cessation. Administered Medications: 18:00 Drug: HYDROcodone-acetaminophen PO 5 mg-325 mg 1 tabs PO once Route: PO; cm10 18:00 Follow up: Response: No adverse reaction; Medication administered at discharge. cm10 Disposition Summary: 09/06/23 17:48 Discharge Ordered Notes: Location: Home sb4 Problem: an ongoing problem sb4 Symptoms: are unchanged sb4 Condition: Stable sb4 Diagnosis - Cracked tooth sb4 - Acute gingivitis sb4 Followup: sb4 - With: Private Physician - When: 1 - 2 days - Reason: Recheck today's complaints, Re-evaluation by your physician Discharge Instructions: - Discharge Summary Sheet sb4 - Dental Pain sb4 - Tooth Injuries sb4 Forms: - Medication Reconciliation Form sb4 - Thank You Letter sb4 - Antibiotic Education sb4 - Prescription Opioid Use sb4 - Patient Portal Instructions sb4 - Leadership Thank You Letter sb4 Prescriptions: - Peridex 0.12 % Mucous Membrane Mouthwash - swish 15 milliliter BUCCAL route 2 times per day; 100 milliliter; Refills: 0, sb4 Product Selection Permitted - Amoxicillin 875 mg Oral Tablet - take 1 tablet ORAL route every 12 hours for 10 days; 20 tablet; Refills: 0, sb4 Product Selection Permitted Signatures: Nickie Fritz PA-C PA-C sb4 Yandy Avina RN RN cm10
[2023-09-06 18:06] VITALS: BP 126/78; TEMP 98.8; O2SAT 98
== END ==
LOC: ER 17:16
DX: K03.81 Cracked tooth (principal); K05.00 Acute gingivitis, plaque induced